=== PATIENT | male | born 1985 | race Caucasian/White ===

== ENCOUNTER 2018-07-19 13:31 | Outpatient (CLI) | payer SELFPAY | END 2018-07-19 13:32 | disposition home or self-care (01) | LOC: NAV LAB 13:31 | PROVIDERS: ATTEND Pathology Anatomic Pathology & Clinical Pathology | DX: Z51.81 Encounter for therapeutic drug level monitoring (principal); Z79.899 Other long term (current) drug therapy | CPT/HCPCS: 99001 ==